=== PATIENT | male | born 1960 | race Caucasian/White ===

== ENCOUNTER 2021-09-13 21:02 | Emergency (ER) | payer OTHER ==
[~2021-09-13] VITALS: Ht 175.3 cm; Wt 74.8 kg
[2021-09-13] MEDS ORDERED: AMLODIPINE-OLM1 EAC3 (21:13)
== END 2021-09-13 22:28 | disposition home or self-care (01) ==
LOC: ER 21:02
DX: R42 Dizziness and giddiness (principal); R53.81 Other malaise

== ENCOUNTER 2022-12-01 15:16 | Emergency (ER) | payer OTHER ==
[~2022-12-01] VITALS: Ht 175.3 cm; Wt 72.6 kg
[~2022-12-01 15:16] MED LIST: AMLODIPINE-OLM1 EAC3
[2022-12-01] MEDS ORDERED: BUSPIRONE HCL5 MG PO (15:36)
[2022-12-01] MEDS ORDERED: CIPRO500 MG PO (18:15)
[2022-12-01] MEDS ORDERED: KETO10TA2 PO (18:15)
[2022-12-01] MEDS ORDERED: TAMS0.4C PO (18:15)
[2022-12-01] MEDS ORDERED: ONDANSETRON ODT8 MG PO (18:15)
== END 2022-12-01 18:41 | disposition home or self-care (01) ==
LOC: ER 15:16
DX: N20.9 Urinary calculus, unspecified (principal)